=== PATIENT | male | born 1970 | race African-American/Black ===

== ENCOUNTER 2019-09-09 19:44 | Emergency (ER) | payer OTHER ==
[~2019-09-09] VITALS: Ht 185.4 cm; Wt 77.1 kg
[2019-09-09 20:00] VITALS: BP 109/71
[2019-09-09] MEDS ORDERED: DiphenhydrAMINE 50mg/ml Inj IVP ONE (20:00)
[2019-09-09] MEDS ORDERED: Metoclopramide 10mg/2ml Inj IVP ONE (20:00)
--- NOTE | 2019-09-09 20:00 | NUR ---
ED Nurse Note: Pt brought into ED from [facility] by [facility] ambulance unit 265 for c/o n/v x 12 hours. Per EMS, facility wanted pt to be evaluated since he has had multiple episodes of vomiting and has not been able to tolerate anything PO. Pt is aaox3, breathing is normal and unlabored. Pt denies any chest pain or abdominal pain at this time. Pt connected to radiology teacher and placed in gown. Will continue to monitor.
[2019-09-09 20:41] LABS: BASOPHILS % (AUTO) 1.4 % (0.0-2.0); EOSINOPHILS % (AUTO) 1.5 % (0.0-3.0); HEMOGLOBIN 13.9 G/DL (14.2-18.0); LYMPHOCYTES % (AUTO) 23.4 % (20.0-45.0); MEAN CORPUSCULAR VOLUME 100 FL (80-99); MONOCYTES % (AUTO) 7.5 % (1.0-10.0); NEUTROPHILS % (AUTO) 66.3 % (45.0-75.0); PLATELET COUNT 211 K/UL (150-450); RED BLOOD COUNT 4.01 M/UL (4.70-6.10); RED CELL DISTRIBUTION WIDTH 10.5 % (11.6-14.8); WHITE BLOOD COUNT 6.2 K/UL (4.8-10.8)
[2019-09-09 21:04] LABS: ANION GAP 14 mmol/L (5-15); BLOOD UREA NITROGEN 13 mg/dL (7-18); CALCIUM 9.6 MG/DL (8.5-10.1); CARBON DIOXIDE 27 MMOL/L (21-32); CHLORIDE 106 MMOL/L (98-107); CREATININE 0.8 MG/DL (0.55-1.30); SODIUM 147 MMOL/L (136-145)
[2019-09-09 21:09] LABS: ALANINE AMINOTRANSFERASE 64 U/L (12-78); ALBUMIN/GLOBULIN RATIO 0.9 (1.0-2.7); ALKALINE PHOSPHATASE 116 U/L (46-116); ASPARTATE AMINO TRANSFERASE 29 U/L (15-37); BILIRUBIN,TOTAL 0.4 MG/DL (0.2-1.0); CREATINE KINASE 98 U/L (26-308)
--- NOTE | 2019-09-09 21:34 | Emergency Room Report ---
History of Present Illness General Chief Complaint: Abdominal Pain Source: Patient, EMS Present Illness HPI The patient presents for evaluation for nausea vomiting diarrhea that began this morning. The patient denies abdominal pain. He is unsure if he ate something unusual. He denies vomiting blood or coffee grounds. He denies any melena and states that the diarrhea is been brown in color without any blood. He denies fevers or chills. He says his nausea is somewhat better at this time. No sore throat, chest pain, palpitations, dysuria, abdominal pain, shortness of breath, joint pain, rashes, depression, anxiety, visual changes, dizziness, headache. The patient has a history of traumatic brain injury. He also suffers from schizophrenia. The patient has a history of seizures and is on Dilantin. Allergies: Coded Allergies: No Known Allergies (Unverified , 09/09/19) Patient History Past Medical History: see triage record Social History: Reports: smoking; Denies: alcohol use, drug use Social History Narrative [facility] Reviewed Nursing Documentation: PMH: Agreed; PSxH: Agreed Nursing Documentation-PMH History Of Psychiatric Problem: Yes Review of Systems All Other Systems: negative except mentioned in HPI Physical Exam Vital Signs Date Time Temp Pulse Resp B/P (MAP) Pulse Ox O2 Delivery O2 Flow Rate FiO2 09/09/19 19:49 98.6 61 18 109/71 (84) 96 Room Air Sp02 EP Interpretation: reviewed, normal General Appearance: well appearing, no apparent distress, GCS 15, non-toxic Head: normocephalic Eyes: bilateral eye normal inspection, bilateral eye PERRL, bilateral eye EOMI ENT: moist mucus membranes Neck: supple Respiratory: lungs clear, normal breath sounds Cardiovascular #1: regular rate, rhythm Cardiovascular #2: 2+ radial (R) Gastrointestinal: normal inspection, normal bowel sounds, non tender, no mass, non-distended Genitourinary: no CVA tenderness Musculoskeletal: back normal, normal range of motion Neurologic: alert, oriented - X2, other - Slow speaking Psychiatric: mood/affect normal Skin: no rash, warm/dry Medical Decision Making Diagnostic Impression: Primary Impression: Nausea vomiting and diarrhea Additional Impressions: History of traumatic brain injury History of seizures ER Course Patient presents with 1 day of nausea vomiting diarrhea. Differential includes gastroenteritis, food poisoning, urinary tract infection, Dilantin toxicity amongst others. Evaluation with EKG, chest x-ray and abdomen film with labs. Patient treated with IV hydration, Reglan, Benadryl and Pepcid. EKG no injury. Chest x-ray clear. Abdomen film no obstruction. White count normal. Electrolytes unremarkable. Dilantin level slightly low. Patient improved with treatment. Tolerating oral intake without difficulty. No further vomiting and no diarrhea here. Abdomen is nonsurgical. No fevers. Discussed findings with patient and treatment plan. Patient stable for outpatient observation and treatment. Laboratory Tests Test 09/09/19 20:15 White Blood Count 6.2 K/UL (4.8-10.8) Red Blood Count 4.01 M/UL (4.70-6.10) L Hemoglobin 13.9 G/DL (14.2-18.0) L Hematocrit 40.0 % (42.0-52.0) L Mean Corpuscular Volume 100 FL (80-99) H Mean Corpuscular Hemoglobin 34.7 PG (27.0-31.0) H Mean Corpuscular Hemoglobin Concent 34.9 G/DL (32.0-36.0) Red Cell Distribution Width 10.5 % (11.6-14.8) L Platelet Count 211 K/UL (150-450) Mean Platelet Volume 5.7 FL (6.5-10.1) L Neutrophils (%) (Auto) 66.3 % (45.0-75.0) Lymphocytes (%) (Auto) 23.4 % (20.0-45.0) Monocytes (%) (Auto) 7.5 % (1.0-10.0) Eosinophils (%) (Auto) 1.5 % (0.0-3.0) Basophils (%) (Auto) 1.4 % (0.0-2.0) Prothrombin Time 11.1 SEC (9.30-11.50) Prothrombin Time INR 1.0 (0.9-1.1) Activated Partial Thromboplast Time 28 SEC (23-33) Sodium Level 147 MMOL/L (136-145) H Potassium Level 4.0 MMOL/L (3.5-5.1) Chloride Level 106 MMOL/L (98-107) Carbon Dioxide Level 27 MMOL/L (21-32) Anion Gap 14 mmol/L (5-15) Blood Urea Nitrogen 13 mg/dL (7-18) Creatinine 0.8 MG/DL (0.55-1.30) Estimate Glomerular Filtration Rate > 60 mL/min (>60) Glucose Level 111 MG/DL (74-106) H Calcium Level 9.6 MG/DL (8.5-10.1) Total Bilirubin 0.4 MG/DL (0.2-1.0) Aspartate Amino Transferase (AST) 29 U/L (15-37) Alanine Aminotransferase (ALT) 64 U/L (12-78) Alkaline Phosphatase 116 U/L (46-116) Total Creatine Kinase 98 U/L (26-308) Troponin I Pending Total Protein 8.4 G/DL (6.4-8.2) H Albumin 4.0 G/DL (3.4-5.0) Globulin 4.4 g/dL Albumin/Globulin Ratio 0.9 (1.0-2.7) L Lipase 101 U/L (73-393) EKG Diagnostic Results Rate: bradycardiac ST Segments: no acute changes Rhythm Strip Diag. Results EP Interpretation: yes Rhythm: no PVC's, no ectopy, other - Sinus bradycardia 55 right bundle branch block Chest X-Ray Diagnostic Results Chest X-Ray Diagnostic Results : Chest X-Ray Ordered: Yes # of Views/Limited/Complete: 1 View Indication: Other EP Interpretation: Yes Interpretation: no consolidation, no effusion, no pneumothorax, other - Nodule Impression: Other Electronically Signed by: Electronically signed by Martin Robles MD Other X-Ray Diagnostic Results Other X-Ray Diagnostic Results : X-Ray ordered: Abdomen # of Views/Limited Vs Complete: 1 View Indication: Other Interpretation: nonspecific bowel gas, no sbo, other - Stool Impression: Other Electronically Signed by: Electronically signed by Martin Robles MD Last Vital Signs Date Time Temp Pulse Resp B/P (MAP) Pulse Ox O2 Delivery O2 Flow Rate FiO2 09/09/19 19:49 98.6 61 18 109/71 (84) 96 Room Air Status: improved Disposition: XFER SNF Condition: Improved Scripts Loperamide HCl (Loperamide) 2 Mg Capsule 2 MG ORAL Q8HR, #10 CAP 0 Refills Prov: Martin Robles MD 09/09/19 Ondansetron Odt* (ZOFRAN ODT*) 4 Mg Tab.rapdis 4 MG BC EVERY 8 HOURS, #10 TAB 0 Refills Prov: Martin Robles MD 09/09/19 Referrals: Bulmaro Chen DO (PCP) Martin Robles MD Sep 09, 2019 21:34
[2019-09-09] MEDS ORDERED: IMODIUM2 MG ORAL (21:36)
[2019-09-09] MEDS ORDERED: ONDANSETRON ODT4 MG BC (21:36)
--- NOTE | 2019-09-09 21:44 | Diagnostic Imaging Report ---
EXAM: XR Abdomen, 2 Views CLINICAL HISTORY: Abdominal pain. TECHNIQUE: Frontal view of the abdomen/pelvis with upright view of the abdomen. COMPARISON: None. FINDINGS: Intraperitoneal space: No free air. Gastrointestinal tract: Nonspecific bowel gas pattern. No dilation. Bones/joints: Osteopenia. Vasculature: Left pelvic phlebolith. Other findings: Moderate to large quantity of stool. No abnormal calcifications. IMPRESSION: Moderate quantity of stool. Nonspecific bowel gas pattern.
--- NOTE | 2019-09-09 21:45 | Diagnostic Imaging Report ---
EXAM: XR Chest, 1 View CLINICAL HISTORY: ABD PAIN TECHNIQUE: Frontal view of the chest. COMPARISON: None. FINDINGS: Lungs: The lungs are well aerated. A 0.7 cm nodule is noted at the inferior aspect the right mid lung zone of uncertain etiology. Pleural space: Unremarkable. No pneumothorax. Heart: Cardiomediastinal silhouette unremarkable. Mediastinum: See above. Bones/joints: Ribs are unremarkable. Soft tissues: The soft tissues are unremarkable. IMPRESSION: Nodule at the inferior aspect the right mid lung zone of uncertain etiology. CT imaging of the chest without contrast is advised to follow. No pleural effusions.
--- NOTE | 2019-09-09 21:47 | NUR ---
Spoke with Mal at [facility]-aware of patient going back.
[2019-09-09 22:41] LABS: APPEARANCE,URINE CLOUDY; BILIRUBIN, URINE NEGATIVE (NEGATIVE); COLOR,URINE AMBER; GLUCOSE, URINE (UA) NEGATIVE (NEGATIVE); KETONES,URINE 1+ (NEGATIVE); LEUKOCYTE ESTERASE ,URINE 2+ (NEGATIVE); NITRITE,URINE NEGATIVE (NEGATIVE); PH,URINE 8 (4.5-8.0); PROTEIN,URINE 2+ (NEGATIVE); UROBILINOGEN,URINE 4 MG/DL (0.0-1.0)
[2019-09-09 23:45] VITALS: BP 110/85
--- NOTE | 2019-09-09 23:45 | NUR ---
ER DISCHARGE NOTE: Patient is cleared to be discharged per ERMD, pt is aox4, on room air, with stable vital signs. No acute distress noted. EMS crew was given dc and prescription instructions, pt ID band and IV removed with no complications. Pt being transported back to facility by [facility] unit 625. All belongings sent with pt.
[2019-09-13] MEDS ORDERED: CEPHALEXIN500 MG ORAL (10:27)
== END 2019-09-09 23:45 ==
LOC: EDBD 19:44 → EMR 20:32
DX: R11.2 Nausea with vomiting, unspecified (principal); R19.7 Diarrhea, unspecified; Z87.820 Personal history of traumatic brain injury; G40.909 Epilepsy, unspecified, not intractable, without status epilepticus; F17.200 Nicotine dependence, unspecified, uncomplicated; F20.9 Schizophrenia, unspecified; Z79.899 Other long term (current) drug therapy
CPT/HCPCS: 36415; 71045; 74018; 80053; 80185; 81003; 82550; 83690; 84484; 85025; 85610; 85730; 87086; 87181; 93005; 96361; 96374; 96375; J1200; J2765; J7030; S0028; Z7502; 99284